=== PATIENT | female | born 1960 | race Caucasian/White ===

== ENCOUNTER 2020-09-12 22:05 | Emergency (ER) | payer OTHER, SELFPAY ==
[2020-09-12 22:11] VITALS: BP 161/107; PULSE 92; RESP 20; TEMP 36.9; O2SAT 97
[2020-09-12 22:34] LABS: Basophils Absolute Auto 0.1 K/mm3 (0.0-0.1); Basophils Percent Auto 1.3 % (0.2-1.2); Eosinophils Absolute Auto 0.9 K/mm3 (0-0.3); Hematocrit 45.1 % (37.0-47.0); Hemoglobin 14.1 g/dL (12.0-15.0); Immature Granulocyte Absolute 0.08 K/mm3 (0.00-0.031); Immature Granulocyte Percent A 0.8 % (0-0.5); Lymphocytes Absolute Auto 3.19 K/mm3 (0.9-3.2); Lymphocytes Percent Auto 30.1 % (18.3-44.2); Mean Corpuscular HGB Conc 31.3 g/dl (32-36); Mean Corpuscular Hemoglobin 28.8 pg (26-34); Mean Platelet Volume 10.1 fl (7.4-10.4); Monocytes Absolute Auto 0.8 K/mm3 (0.1-0.6); Monocytes Percent Auto 7.9 % (2.6-8.5); Neutrophils Absolute Auto 5.5 K/mm3 (1.3-6.7); Neutrophils Percent Auto 51.9 % (45.5-73.1); Platelet Count Result 258 k/mm3 (150-375); Red Cell Distribution Width 12.9 % (11.5-14.5); White Blood Count 10.6 K/mm3 (4.5-10.0)
[2020-09-12 22:41] LABS: Anion Gap 8 mmol/L (8-16); Blood Urea Nitrogen 16 mg/dL (7-17); Calcium 9.2 mg/dL (8.4-10.2); Carbon Dioxide 27 mmol/L (22-30); Chloride 105 mmol/L (98-107); Estimated CRCL calculation 57 ml/min; Estimated Glomerular Filt Rate 46; Glucose 104 mg/dL (65-105); Potassium 3.9 mmol/L (3.4-5.0); Sodium 140 mmol/L (137-145)
[2020-09-12 22:43] VITALS: BP 165/99; PULSE 86; RESP 18; O2SAT 98
--- NOTE | 2020-09-12 23:00 | PC.NURSE ---
Assumed care of pt. at this time. Report from CARRIE Pastrana
[2020-09-13 00:14] VITALS: BP 155/90; PULSE 79; RESP 15; O2SAT 97
--- NOTE | 2020-09-13 01:15 | ED.FEMALEGU ---
HPI - Female Genitourinary General Chief complaint: [employer] Stated complaint: Vaginal bleeding Time Seen by Provider: 09/13/20 00:38 Source: patient Mode of arrival: ambulatory Limitations: no limitations History of Present Illness HPI Narrative: 59-year-old with no major medical problems here with complaints of vaginal bleeding for past few days. Patient states since this she has been soaking 1 pad every hour later since this evening she has been soaking 2 pads every hour. She she denies being lightheaded or dizzy. No history of abdominal pain. She denies any history of fibroids. Patient states that she had no. For 5 years and started all over again in the last few months. MD elicited complaint: vaginal bleeding Onset (ago): day(s) (2) Exacerbating factors: none Relieving factors: none Associated symptoms: denies other symptoms Related Data Allergies Allergy/AdvReac Type Severity Reaction Status Date / Time No Known Allergies Allergy Mild Unverified 12/20/08 05:27 Review of Systems Review of Systems: All systems reviewed & are unremarkable except as noted in HPI and below Constitutional: Constitutional: Reports no additional constitutional complaints Eyes: Eyes: Reports no additional eye complaints ENT: Reports system reviewed and no additional complaints, except as documented Cardiovascular: Cardiovascular: Reports no additional cardiovascular complaints Respiratory: Respiratory: Reports no additional respiratory complaints Gastrointestinal: Gastrointestinal: Reports no additional gastrointestinal complaints Genitourinary: Genitourinary: Reports no additional female genitourinary complaints Musculoskeletal: Musculoskeletal: Reports no additional musculoskeletal complaints Integumentary/Breasts: Skin/Breast: Reports system reviewed and no additional complaints, except as docu Neurologic: Reports system reviewed and no additional complaints, except as documented Psychiatric: Psychiatric: Reports no additional psychiatric complaints PMFSH Social History Social History Gender identity (if verbalized by the patient): Female Exam Narrative: Exam Narrative: GENERAL: Well-appearing, well-nourished, and in no acute distress. HEAD: Normocephalic, atraumatic. EYES: PERRLA and EOMI. NECK: Supple. CHEST: Clear to auscultation. No respiratory distress. HEART: Regular rate and rhythm. No murmur heard. Normal peripheral pulses. ABDOMEN: Soft, nontender, nondistended, normal active bowel sounds Pelvic normal external genitalia, very minimal blood in vaginal vault.. EXTREMITIES: Normal range of motion. No edema. SKIN: Warm, dry, no rash. NEURO: No focal deficits. Alert and oriented x3. PSYCH: Normal mood and affect. Course Course Emergency Course: Inform patient about her lab work. I discussed with Dr. Morelos . Advised no hormone therapy at this time would like to follow-up in the office. Patient does feel comfortable going home Vital Signs Vital signs: Vital Signs Temperature 36.9 C 09/12/20 22:11 Pulse Rate 92 09/12/20 22:11 Respiratory Rate 20 09/12/20 22:11 Blood Pressure 161/107 H 09/12/20 22:11 Pulse Oximetry 97 09/12/20 22:11 Temperature 36.9 C 09/12/20 22:11 Pulse Rate 79 09/13/20 00:14 Respiratory Rate 15 09/13/20 00:14 Blood Pressure 155/90 H 09/13/20 00:14 Pulse Oximetry 97 09/13/20 00:14 MDM - Female Genitourinary Lab Data Result diagrams: 09/12/20 22:23 09/12/20 22:24 Labs: Lab Results 09/12/20 09/12/20 09/12/20 Range/Units 22:23 22:23 22:24 WBC 10.6 H (4.5-10.0) K/mm3 RBC 4.90 (4.2-5.4) M/mm3 Hgb 14.1 (12.0-15.0) g/dL Hct 45.1 (37.0-47.0) % MCV 92.0 (80-100) fl MCH 28.8 (26-34) pg MCHC 31.3 L (32-36) g/dl RDW 12.9 (11.5-14.5) % Plt Count 258 (150-375) k/mm3 MPV 10.1 (7.4-10.4) fl Immature Gran % (Auto) 0.8 H (0-0
[2020-09-13 01:40] VITALS: BP 146/90; PULSE 83; RESP 20; O2SAT 99
== END 2020-09-13 01:40 | disposition home or self-care (01) ==
PROVIDERS: Emergency Provider Family Medicine; PCP Family Medicine
DX: N92.4 Excessive bleeding in the premenopausal period (principal)
CPT/HCPCS: 36415; 80048; 85025; 86850; 86900; 86901; 99283